=== PATIENT | male | born 1950 | race Caucasian/White ===

== ENCOUNTER 2022-12-11 11:06 | Emergency (ER) | payer MEDICARE, OTHER, SELFPAY ==
[2022-12-11 11:19] VITALS: BP 133/80; PULSE 66; RESP 16; TEMP 37.1; O2SAT 98
--- NOTE | 2022-12-11 11:30 | DI.RAD_ITS ---
Exam(s) XR SHOULDER LT COMPLETE 2+V EXAM: XR SHOULDER LT COMPLETE 2+V CLINICAL HISTORY: shoulder deformity. TECHNIQUE: 2D digital imaging was performed. Three views. COMPARISON: No exams were available for comparison FINDINGS: BONES: Comminuted fracture of the surgical neck of the humerus and greater tuberosity. Significant i nferior displacement of the humeral head with respect to the glenoid but no marquise dislocation. A non displaced fracture is also noted at the inferior glenoid. No bony destructive lesion is seen. JOINTS: No dislocation present. AC joint shows mild degenerative changes. SOFT TISSUE: Normal. IMPRESSION: Comminuted, displaced humeral head fracture. Fracture of the inferior glenoid. DATA REPOSITORY: RADIATION DOSE DELIVERED:
--- NOTE | 2022-12-11 11:30 | DI.RAD_ITS ---
Exam(s) XR CHEST 2V PA LATERAL EXAM: XR CHEST 2V PA LATERAL CLINICAL HISTORY: fall, shoulder injury TECHNIQUE: 2D digital imaging was performed. COMPARISON: No exams were available for comparison FINDINGS: HEART: Normal size. Aorta: Not dilated. PULMONARY VASCULATURE: Normal. LUNGS: Clear. PLEURAL SPACE: No pleural effusion or pneumothorax. BONE:Proximal humeral fracture visible on lateral view. The spine appears intact with only mild dege nerative changes. IMPRESSION: No acute abnormality of the chest. Proximal humeral fracture. DATA REPOSITORY: RADIATION DOSE DELIVERED:
--- NOTE | 2022-12-11 12:31 | DI.VRAD_ITS ---
PROCEDURE INFORMATION: Exam: XR Left Shoulder Exam date and time: 12/11/2022 12:01 PM Age: 72 years old Clinical indication: Injury or trauma; Fall; Other: Shoulder deformity TECHNIQUE: Imaging protocol: Radiologic exam of the left shoulder. Views: 2 or more views. COMPARISON: CR XR CHEST 2V PA LATERAL 12/11/2022 11:57 AM FINDINGS: Bones/joints: Comminuted acute fracture of the left humeral head with inferior subluxation at the glenohumeral joint. Probable small fracture of the inferior glenoid rim. The acromioclavicular joint is intact. Soft tissues: Normal. IMPRESSION: Comminuted left humeral head and inferior glenoid fractures as above with inferior subluxation which may be related to joint effusion Dictated and Authenticated by: Wilda Selby MD. Ordering:MAAME Vazquez MD
--- NOTE | 2022-12-11 12:35 | DI.VRAD_ITS ---
PROCEDURE INFORMATION: Exam: XR Chest Exam date and time: 12/11/2022 11:57 AM Age: 72 years old Clinical indication: Injury or trauma; Fall TECHNIQUE: Imaging protocol: Radiologic exam of the chest. Views: 2 views. COMPARISON: No relevant prior studies available. FINDINGS: Lungs: Unremarkable. No consolidation. Pleural spaces: Unremarkable. No pleural effusion. No pneumothorax. Heart/Mediastinum: Unremarkable. No cardiomegaly. Bones/joints: Unremarkable. IMPRESSION: No acute findings. Dictated and Authenticated by: Wilda Selby MD. Ordering:MAAME Vazquez MD
--- NOTE | 2022-12-11 15:44 | W.ED.GENAD ---
Discharge Plan Disposition Patient Disposition: Home Discharge Details Clinical Impression: Fracture, shoulder Primary Care Provider: Alicia,Local ED Provider: Taylor Arana Home Meds and New Rx's Prescriptions: New oxycodone 5 mg capsule 5 mg PO Q6H PRNQty: 10 0RF Continued metformin 500 mg tablet 500 mg PO BID metoprolol succinate 100 mg tablet extended release 24 hr 50 mg PO DAILY Patient Comments: TAKE 1 & 1/2 (ONE & ONE-HALF) TABLETS BY MOUTH ONCE DAILY allopurinol 300 mg tablet 300 mg PO BID furosemide 20 mg tablet 20 mg PO DAILY ezetimibe 10 mg tablet 10 mg PO DAILY Eliquis 5 mg tablet 5 mg PO BID Discharge Instructions Instructions: Shoulder Sprain (ED), Shoulder Pain (ED) Additional Instructions: You will need surgery on your shoulder, please follow-up with an orthopedist as soon as you arrive home Wear your sling Take Tylenol 650 every 4-6 hours You have declined head and neck CT, if you develop headache, nausea, vomiting, or dizziness you should be reassessed immediately I am attaching her orthopedist information, but it sounds like you will likely follow-up in [place] Referrals: Joe Caceres MD [ [facility] STAFF PHYSICIAN] - Discharge Data Discharge Date/Time-TO BE ENTERED AT DEPARTURE: 12/11/22 14:02 Medical Decision Making 72-year-old gentleman presenting with a left shoulder injury. Event witnessed by son, patient fell in his left shoulder, tripped over fireplace. Denies head injury although patient is anticoagulated on Eliquis. Denies strength or sensation change. Is unable to move left shoulder secondary to discomfort. No loss of consciousness or headache, no neck pain GCS 15, pupils equal round reactive to light and accommodation, neurovascularly intact Left x-ray was ordered secondary to deformity of left shoulder, evidence of a comminuted displaced left humeral head fracture, per radiology interpretation my review, case discussed with orthopedics, recommendation for sling Patient lives in [place] returning tomorrow, will follow up there Recommendation for CT head and cervical spine, patient has declined, is fully alert, oriented, of decisional capacity, son in room I am a small amount of opiate analgesia for home Return precautions reviewed and patient expressed understanding, neurovascularly intact, head to toe physical exam performed without additional evidence of trauma HPI General Date/Time Provider Initiated Documentation: 12/11/22 11:36. HPI Narrative: 72-year-old male presents with left shoulder pain after trip and fall over fireplace last evening. Landed on his left shoulder, is anticoagulated for fibrillation. Visiting from [place]. Denies any neck pain, chest pain, shortness of breath, dizziness, weakness. Has been ambulatory at his baseline since the event occurred per patient Related Data Home Medications Medication Instructions Recorded Confirmed allopurinol 300 mg tablet 300 mg PO BID 12/11/22 12/11/22 apixaban 5 mg tablet (Eliquis) 5 mg PO BID 12/11/22 12/11/22 ezetimibe 10 mg tablet 10 mg PO DAILY 12/11/22 12/11/22 furosemide 20 mg tablet 20 mg PO DAILY 12/11/22 12/11/22 metformin 500 mg tablet 500 mg PO BID 12/11/22 12/11/22 metoprolol succinate 100 mg 50 mg PO DAILY 12/11/22 12/11/22 tablet,extended release 24 hr oxycodone 5 mg capsule 5 mg PO Q6H PRN #10 caps 12/11/22 Previous Rx's Medication Instructions Recorded oxycodone 5 mg capsule 5 mg PO Q6H PRN #10 caps 12/11/22 Allergies Allergy/AdvReac Type Severity Reaction Status Date / Time No Known Allergies Allergy Unverified 12/11/22 11:47 General Stated Complaint: Orthopedic DULCE: 4 PFSH All Active Problems (Updated 12/11/22 @ 12:35 by JT Souza) Fracture, shoulder (Acute) Social History Smoking/Tobacco Use Status: Never Smoking risk assessment performed?: Yes Alcohol Intake: current Drug use: Never Substance use type: does not use Housing: house Course Vital Signs Vital signs: Vital Signs Temperature 37.1 C 12/11/22 11:19 Pulse 66 12/11/22 11:19 Respiratory Rate 16 12/11/22 11:19 Blood Pressure 133/80 12/11/22 11:19 Pulse Oximetry 98 12/11/22 11:19 Temperature 37.1 C 12/11/22 11:19 Temperature Source Skin 12/11/22 11:19 Pulse 66 12/11/22 11:19 Respiratory Rate 16 12/11/22 11:19 Respiratory Effort Normal 12/11/22 11:44 Blood Pressure 133/80 12/11/22 11:19 Blood Pressure Position Sitting 12/11/22 11:19 Pulse Oximetry 98 12/11/22 11:19 Oxygen Delivery Method Room Air 12/11/22 11:19 Oxygen Flow Rate 0 12/11/22 11:19 Pain Level 8 12/11/22 11:44 Comment ice throughout the night took motrin pt is on elaquis 12/11/22 11:19 PAWSS Have you Been Recently Intoxicated or Drunk Within the Last 30 days?: No Have you Ever Experienced Previous Episodes of Alcohol Withdrawal?: No Have you ever Experienced Withdrawal Seizures?: No Have you ever Experienced Delirium Tremens(DT)s?: No Have you ever undergone Alcohol Rehabilitation Treatment (i.e, inpt ot outpatient treatment programs)?: No Have you ever Experienced Blackouts?: No Have you ever Combined Alcohol with other Downers within the last 90 days?: No Have you ever Combined Alcohol with any other Substance of Abuse during the last 90 days?: No Result: 0
--- NOTE | 2022-12-13 08:35 | NUR.NOTE ---
Accessed Pt chart to obtain information for the [facility] document
== END 2022-12-11 14:02 | disposition home or self-care (01) ==
PROVIDERS: Emergency Provider Physician Assistant
DX: S42.225A 2-part nondisplaced fracture of surgical neck of left humerus, initial encounter for closed fracture (principal); S42.145A Nondisplaced fracture of glenoid cavity of scapula, left shoulder, initial encounter for closed fracture; W01.0XXA Fall on same level from slipping, tripping and stumbling without subsequent striking against object, initial encounter; Y93.01 Activity, walking, marching and hiking; Y92.018 Other place in single-family (private) house as the place of occurrence of the external cause; Y99.9 Unspecified external cause status; I48.91 Unspecified atrial fibrillation; Z79.02 Long term (current) use of antithrombotics/antiplatelets; Z79.84 Long term (current) use of oral hypoglycemic drugs
CPT/HCPCS: 99283; 71046; 73030